=== PATIENT | female | born 1965 | race Caucasian/White ===

== ENCOUNTER → 2018-03-31 | Outpatient (REF) | payer OTHER ==
[2018-04-02 14:10] LABS: HPV HYBRID CAPTURE II Negative (Negative)
== END ==
LOC: M LAB REF 13:46
DX: Z12.4 Encounter for screening for malignant neoplasm of cervix (principal); R87.610 Atypical squamous cells of undetermined significance on cytologic smear of cervix (ASC-US)
CPT/HCPCS: G0123

== ENCOUNTER → 2018-09-23 | Outpatient (CLI) | payer BC, OTHER ==
--- NOTE | 2018-09-23 10:15 | REP ---
RIGHT SHOULDER, THREE VIEWS: HISTORY: Pain. There is no acute fracture or dislocation. There is minimal narrowing of the acromioclavicular joint space. The glenohumeral joint space is normal in appearance. IMPRESSION: Degenerative change as described above. Electronically Signed by Bryce Trejo MD 09/23/2018 10:17 A
--- NOTE | 2018-09-23 10:18 | REP ---
RIGHT WRIST, FOUR VIEWS: HISTORY: Pain. There is no acute fracture or dislocation. The joint spaces are normal in appearance. IMPRESSION: There is no acute fracture or dislocation. Electronically Signed by Bryce Trejo MD 09/23/2018 10:22 A
== END ==
LOC: M WUC 09:08
PROVIDERS: ATTEND Physician Assistant
DX: M25.511 Pain in right shoulder (principal); M25.531 Pain in right wrist

== ENCOUNTER → 2019-12-22 | Outpatient (CLI) | payer BC ==
[2019-12-23 09:07] LABS: IMMUNOGLOBULIN E 8.7 IU/ML (<100)
== END ==
LOC: M LRY 16:15
PROVIDERS: ATTEND Nurse Practitioner Family
DX: J30.2 Other seasonal allergic rhinitis (principal); L20.9 Atopic dermatitis, unspecified; H10.45 Other chronic allergic conjunctivitis

== ENCOUNTER → 2021-04-28 | Outpatient (CLI) | payer BC, OTHER | LOC: M PLALAB 07:21 | PROVIDERS: ATTEND Surgery | DX: C50.911 Malignant neoplasm of unspecified site of right female breast (principal) ==

== ENCOUNTER → 2021-05-22 | Outpatient (CLI) | payer OTHER ==
[~2021-05-22] MED LIST: BUSP5TA PO; CELE1CAP9 PO; DUPI300P SC; FAMO40TA3 PO; MAGN400T3 PO; METF500T13 PO; OMEP40CA4 PO; PRIS100T PO; ROSU20TA5 PO
== END ==
LOC: M LABSMTC 09:07
PROVIDERS: ATTEND Anesthesiology
DX: Z01.818 Encounter for other preprocedural examination (principal); Z11.52 Encounter for screening for COVID-19

== ENCOUNTER 2021-05-27 06:26 | Observation (INO) | payer OTHER ==
[~2021-05-27] VITALS: Ht 160 cm; Wt 79.4 kg
[~2021-05-27 06:26] MED LIST changes: +EMLA CREAM 5GM TUBE (LIDOCAINE/PRILOCAINE) TOP PRN; +LIDOCAINE 1% MDV 20ML VIAL SQ PRN; +LR 1,000 ML IV ONE
[2021-05-27] MEDS: ceFAZolin SOD 1 GM in D5W MINI-BAG PLUS 50 ML IV SCH ×4 (07:50→18:12)
[2021-05-27] MEDS ORDERED: MIDAZOLAM INJ 2MG/2ML VIAL (J2250 PER 1MG) As Ordered ONE (08:09)
[2021-05-27] MEDS ORDERED: ROCURONIUM BROMIDE 50 MG/5 ML VIAL As Ordered ONE (08:09)
[2021-05-27] MEDS ORDERED: fentaNYL 250 MCG/5 ML INJECTION (J3010) As Ordered ONE (08:09)
[2021-05-27] MEDS ORDERED: propofoL 200 MG/20 ML VIAL As Ordered ONE ×2 (08:09→11:22)
[2021-05-27] MEDS ORDERED: ONDANSETRON 4MG/2ML VIAL As Ordered ONE (08:09)
[2021-05-27] MEDS ORDERED: dexameTHASONE 4 MG/ML 1ML VIAL (J1100 PER 1MG) As Ordered ONE (08:09)
[2021-05-27] MEDS ORDERED: LIDOCAINE 2% 100MG/5ML SDV (FOR ANES.) As Ordered ONE (08:09)
[2021-05-27] MEDS ORDERED: SEVOFLURANE INHAL SOLN 250 ML BTL As Ordered ONE (08:20)
[2021-05-27] MEDS ORDERED: LACRILUBE (AKWA TEARS) OPHTH OINT 3.5 GM As Ordered ONE (08:22)
[2021-05-27] MEDS ORDERED: BUPIVACAINE LIPOSOME/PF 1.3% 20ML VIAL (13.3MG/ML)(EXPAREL)(C9290 PER1MG) As Ordered ONE (09:11)
[2021-05-27] MEDS ORDERED: GENTAMICIN SULF 80MG/2ML VIAL As Ordered ONE (09:11)
[2021-05-27] MEDS ORDERED: HEPARIN SOD (PORCINE) 5000UNITS/ML 1ML VIAL/SYRINGE SQ ONE (09:30)
[2021-05-27] MEDS ORDERED: SUGAMMADEX SODIUM 500 MG/5 ML VIAL (BRIDION) As Ordered ONE (11:14)
[2021-05-27] MEDS ORDERED: ACETAMINOPHEN 1000MG 100ML IV BTL (OFIRMEV) (J0131 PER 10MG) As Ordered ONE (11:37)
[2021-05-27] MEDS ORDERED: PHENYLephrine 500MCG 5ML (100MCG/ML) SYRINGE As Ordered ONE (11:52)
[2021-05-27] MEDS ORDERED: ePHEDrine SULFATE 25 MG/5 ML(5MG/ML) SYRINGE As Ordered ONE ×2 (11:52→12:58)
[2021-05-27] MEDS ORDERED: HYDROmorphone HCL 2 MG/ML 1ML VIAL As Ordered ONE (11:53)
--- NOTE | 2021-05-27 13:41 | REP ---
INDICATION: right breast -pre op. COMPARISON: None. TECHNIQUE/RADIOTRACER AND DOSE: This procedure was performed by Alyse Dasilva [facility], under the direct supervision of Dr. Blank. Images were reviewed with Dr. Blank prior to dictation. The risks and benefits of the procedure were explained to the patient and informed consent was obtained both orally and written. Directly prior to the start of the procedure, a formal timeout was done in the exam room. Using topical anesthetic and sterile technique 0.992 mCi of filtered Technetium-99m sulfur colloid was injected subdermally in 8 fractionated periareolar injections. FINDINGS: Images obtained 1 hour after injection show sree uptake in the right axilla. IMPRESSION: There is sree uptake in the right axilla. <Electronically signed by Alyse Dasilva > 05/27/21 [id number] <Electronically signed by Asad Blank > 05/27/21 [id number]
--- NOTE | 2021-05-27 15:23 | POST-OPPD ---
Postoperative Procedure Note Date Of Procedure: May 27, 2021 PREOPERATIVE DIAGNOSIS: Right breast cancer. Acquired deformity right breast. POSTOPERATIVE DIAGNOSIS: same PROCEDURE: Immediate right breast reconstruction s/p mastectomy with tissue progressive assembler and fitter. SURGEON: Dr Samson ATOMIC PHYSICS TEACHER: Dr Barkley ANESTHESIA: general ESTIMATED BLOOD LOSS: 200 cc total FINDINGS: Right breast nipple spearing mastectomy SPECIMENS: none COMPLICATIONS: none REPLACED: none DRAINS: 15 Fr round POSTOPERATIVE CONDITION: stable LEXI SAMSON DO May 27, 2021 15:23
--- NOTE | 2021-05-27 15:24 | ROOPDOC ---
[facility] Report Of Operation Report of Operation DATE OF PROCEDURE: 05/27/21 PREOPERATIVE DIAGNOSIS: Right breast cancer. Acquired deformity right breast. POSTOPERATIVE DIAGNOSIS: same PROCEDURE: Immediate right breast reconstruction s/p mastectomy with tissue perioperative educator. SURGEON: Dr Samson SURGICAL TECHNOLOGY INSTRUCTOR: Dr Barkley ANESTHESIA: general ESTIMATED BLOOD LOSS: 200 cc total FINDINGS: Right breast nipple spearing mastectomy SPECIMENS: none COMPLICATIONS: none REPLACED: none DRAINS: 15 Fr round POSTOPERATIVE CONDITION: stable DESCRIPTION OF PROCEDURE: This is a 55-year-old female who is scheduled to have right mastectomy with sentinel lymph node biopsy. Patient is a good candidate for immediate postmastectomy reconstruction today. Patient was marked in the preop holding unit. Patient was marked in the upright position. Informed consent was confirmed. Risks benefits and alternatives discussed with the patient in details. Patient was brought into the operating room, placed in supine position. General anesthesia was induced. She was given preoperative antibiotics. Sequential stockings were placed in the lower calves. She is prepped and draped in the usual sterile fashion. We started our procedure on the right side. [place] lymph node biopsy was performed initially through a separate right axillary incision by Dr. Barkley. This part of procedure will be dictated separately. Mastectomy procedure started by creating inframammary incision and nipple sparing mastectomy was done by Dr. Barkley, which is also dictated separately. At the end of the mastectomy part of procedure, I performed SPY fluorescent imaging to confirm the viability of the nipple areolar complex as well as the flap in total. We identified good vascular supply through the area. Patient was reprepped and redraped for the reconstruction part of the procedure at this point. Pectoralis muscle was examined in its good quality. Subpectoral pocket was raised using direct vision of lighted retractor. Hemostasis was obtained using electrocautery. With raised anterior serratus flap to cover lateral inferior portion of the pocket as well. The wound is irrigated with tension with gentamicin irrigation solution. 450 shaped smooth perioperative educator was placed into subpectoral pocket without difficulties. We checked again for the orientation with port placed superior portion of the pocket. The pocket closed with interrupted 3-0 Vicryl sutures without tension. With the help of a magnet finder the needle was introduced into the port and the 120 cc of normal saline was infiltrated. Good expansion was started on the perioperative educator with pectoralis muscle tolerating it well. The prepectoral area was irrigated with gentamicin solution again. Hemostasis was assured. 15 Wallisian round drain was introduced through a separate stab incision and left in the prepectoral space. Flaps were closed with interrupted 3-0 Monocryl and 4 Monocryl sutures. The port was accessed again and additional 60 cc of normal saline was introduced now totaling 180 cc of normal saline in 450 cc perioperative educator. Incisions covered with Prineo dressing, bulky dressing, and surgical bra. Patient tolerated procedure well and transferred to recovery room in stable condition. LEXI SAMSON DO May 27, 2021 15:24
[2021-05-27] MEDS ORDERED: ACETAMINOPHEN TAB 650MG DOSE (2X325MG) PO PRN (15:25)
[2021-05-27] MEDS ORDERED: traMADol 50 MG TAB PO PRN (15:25)
[2021-05-27] MEDS ORDERED: MORPHINE 2 MG/ML 1ML VIAL (J2270) IV PRN (15:25)
[2021-05-27] MEDS: LR 1,000 ML IV SCH (15:25)
[2021-05-27] MEDS ORDERED: METOCLOPRAMIDE INJ 10MG/2ML VIAL (J2765 PER 1) IV PRN (15:35)
[2021-05-27] MEDS ORDERED: LR 1,000 ML IV SCH (15:35)
[2021-05-27] MEDS ORDERED: ONDANSETRON 4MG/2ML VIAL IV PRN (15:35)
[2021-05-27] MEDS ORDERED: fentaNYL 100 MCG/2 ML INJECTION (J3010) IV PRN (15:35)
--- NOTE | 2021-05-27 15:42 | REP ---
INDICATION: S/P MASECTOMY. COMPARISON: None. TECHNIQUE: Portable FINDINGS: The technique utilized in obtaining the radiograph has magnified the cardiac silhouette and accentuated the interstitial markings. The upper lobe region of both lungs is not included on the radiograph. In addition, the lateral aspect of all of the left lung is not included on the radiograph including the left cardiac apex. The imaged portions of the lung agarwal show no gross opacities. There is a right upper lung field radiodensity possibly reflecting a surgical drainage tube or a soft tissue bloom conveyor operator. This would need to be correlated clinically. IMPRESSION: Examination is suboptimal. Repeat examination is recommended for full evaluation of the lung agarwal and to rule out the possibility of pneumonia or atelectasis. Findings as described above. <Electronically signed by Matheus Penaloza > 05/27/21 [id number]
[2021-05-27 16:15] VITALS: BP 148/82
[2021-05-27 16:45] VITALS: BP 145/82
[2021-05-27] MEDS ORDERED: GLUCOSE 4GM CHEW TABLET PO PRN (17:35)
[2021-05-27] MEDS ORDERED: DEXTROSE 50% 50 ML SYRINGE IV PRN (17:35)
[2021-05-27] MEDS ORDERED: GLUCAGON INJ 1MG VIAL SC PRN (17:35)
[2021-05-27 17:45] VITALS: BP 143/83
--- NOTE | 2021-05-27 18:08 | CR.PDOC ---
General Date of Consultation: May 27, 2021 Referring Provider: DENNIS SALINAS DO Attending Physician: JAMAICA CERON MD Consultation REASON FOR CONSULTATION/CHIEF COMPLAINT: Overseeing medical management following surgical breast procedures. HISTORY OF PRESENT ILLNESS: Ms. Fisher is a 55-year-old female in PACU s/p right breast nipple sparing mastectomy and immediate right breast reconstruction with tissue cane piler. She had been out of surgery for about 30 mins and in recovery. She was not very verbal but she was responsive to questioning. Right breast stereotactic biopsy showed pathology consistent with DCIS, grade 3, ER 90%, AK 70% on 12/30/2020. MRI on on 02/20/21 showed a right breast abnormality noted to be 4.9 x 1.9 x 3.1cm at 12:00, 3cm from the nipple. ALLERGIES: Please see below. HOME MEDICATIONS: Please see below. 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% - Pre-diabetes mellitus - Hyperlipidemia - Asthma - JOURDAN - GERD - Hiatal hernia - Depression - PTSD - Eczema PAST SURGICAL HISTORY: - Right breast nipple sparing mastectomy 05/27/2021 - Immediate right breast reconstruction s/p mastectomy with tissue cane piler - Right breast stereotactic biopsy 12/30/2020 - Tonsillectomy - WTE - - Right elbow surgery - Left ankle surgery FAMILY HISTORY: Father: Non-melanoma cancer, age 53 Siblings: sister 1 - non-melanoma, age 57; sister 2 - non-melanoma, age 49 - Denies family history of breast or ovarian cancer SOCIAL HISTORY: Tobacco use: Former smoker, quit more than 10 years ago ETOH: Occasional Illicit drug use: Denies IV drug use: Denies REVIEW OF SYSTEMS: Due to patient's groggy state status post recent surgery, full review of systems was deferred. Patient reported that her pain was under good control and she denied any significant dyspnea PHYSICAL EXAMINATION: VITAL SIGNS: Please see below. GENERAL APPEARANCE: Diaphoretic female patient who appears stated age. She does not appear to be in acute distress. She was seen in recovery in PACU s/p surgical breast procedure. HEENT: NC, AT. Mucus membranes moist. No pharyngeal erythema or exudate appreciated Chest: There is extensive bandaging over the anterior chest with supportive bra. There is no significant erythema of the chest or foul-smelling odors, discharge. No significant chest wall tenderness. RESPIRATORY: Clear to auscultation bilaterally. No wheezing, rales, or rhonchi. No apparent use of accessory muscles. Breathing is unlabored and oxygen delivery via NC. CARDIOVASCULAR: RRR. Normal S1, S2. No murmurs, gallops, or rubs heard. ABDOMEN: Hypoactive bowel sounds throughout. Soft, obese nontender nondistended. EXTREMITIES: No pitting edema. NEUROLOGICAL: She responds to questions and commands but is somewhat somnolent coming out of anesthesia. No gross focal neurologic deficits were appreciated. Nondysarthric speech. LABORATORY DATA: Please see below. IMAGIN05/27/2021 Portable CXR Findings: "The imaged portions of the lung agarwal show no gross opacities. There is a right upper lung field radiodensity possibly reflecting a surgical drainage tube or a soft tissue cane piler. This would need to be correlated clinically." ASSESSMENT/PLAN: Ms. iFsher is a 55-year-old female with a h/o right breast DCIS, pre-diabetes, hyperlipidemia, asthma, JOURDAN, GERD, hiatal hernia, depression, PTSD, and eczema presenting s/p right breast nipple sparing mastectomy and immediate right breast reconstruction with tissue cane piler consulted for medical management post surgery due to co-morbidities. # S/p right breast nipple sparing mastectomy and immediate right breast reconstruction with tissue cane piler - Will continue diet recommendations, fluids, antibiotic therapy, and pain medications per breast oncology service - Will discontinue fluids when tolerating PO - Morning lab work in the form of CBC, BMP, magnesium all ordered for tomorrow morning. # Pre-diabetes - Hold home metformin - FSBG check AC and HS, insulin sliding scale and hypoglycemia protocol ordered. # Hyperlipidemia - Continue home rosuvastatin # Asthma - Continue home inhalers - Oxygen therapy; titrating O2 >92% - Continuous pulse oximetry - Incentive spirometry - Will continue to monitor and stop fluids if patient becomes hypoxic; patient is not O2 dependent at home and was on 3 L at time of our exam. To this point she is already received 2 L of fluids. # JOURDAN - Patient states JOURDAN was diagnosed with sleep study outpatient but does not use a C-PAP - JOURDAN protocol ordered. - Continuous pulse ox ordered # GERD - Continue home famotidine, omeprazole # Depression, PTSD - Continue home Pristiq, Buspirone # Eczema - Patient takes home Dupixent pen 300mg SC Q2Wks # DVT prophylaxis: - Patient was on sequentials and will be starting heparin at 10 PM tonight per the primary service who is overseeing anticoagulation. Disposition: - Pending continued stability following surgery and at discretion of primary team. - Anticipated discharge tomorrow Vital Signs/I&O Vital Signs Date Time Temp Pulse Resp B/P (MAP) Pulse Ox O2 Delivery O2 Flow Rate FiO2 05/27/21 16:45 96.3 90 18 145/82 (103) 95 Nasal Cannula 2.0 Laboratory Data Labs 24H Laboratory Tests 2 05/27/21 07:16: Bedside Glucose (Misc Panel) 117H Allergies Coded Allergies: latex (Verified Allergy, Mild, RASH/ITCHY, 05/14/21) prochlorperazine (Verified Adverse Reaction, Unknown, LOCK JAW, 05/14/21) promethazine (Verified Adverse Reaction, Unknown, LOCK JAW, 05/14/21) Home Medications Scheduled Buspirone HCl (Buspirone HCl) 5 Mg Tablet, 5 MG PO BID, (Reported) Celecoxib (Celecoxib) 200 Mg Capsule, 200 MG PO BID, (Reported) Desvenlafaxine Succinate (Pristiq) 100 Mg Tab.er.24h, 100 MG PO DAILY, (Reported) Dupilumab (Dupixent Pen) 300 Mg/2 Ml Pen.injctr, 300 MG SC Q2WK, (Reported) Famotidine (Famotidine) 40 Mg Tablet, 40 MG PO QHS, (Reported) Magnesium Oxide (Magnesium Oxide) 400 Mg Tablet, 400 MG PO DAILY, (Reported) Metformin HCl (Metformin HCl) 500 Mg Tablet, 500 MG PO BID, (Reported) Omeprazole (Omeprazole) 40 Mg Capsule.dr, 40 MG PO DAILY, (Reported) Rosuvastatin Calcium (Rosuvastatin Calcium) 20 Mg Tablet, 20 MG PO DAILY, (Reported) Scheduled PRN Tramadol HCl (Tramadol HCl) 50 Mg Tablet, 50 MG PO Q6-8HP PRN for MODERATE PAIN (PS 5-7) for 5 Days, #20 GME ATTESTATION GME ATTESTATION My faculty preceptor for this patient encounter was physically present during the encounter and was fully available. All aspects of the patient interview, examination, medical decision making process, and medical care plan development were reviewed and approved by the faculty preceptor. The faculty preceptor is aware and concurs with the plan as stated in the body of this note and will attest to such by his/her cosignature. ATTENDING NOTE I, [place] Ceron, have independently examined this patient and performed my own physical exam, as well as reviewed the documentation and edited where necessary. I have discussed in detail with the resident / student the findings and plan of treatment as documented by the resident / student and edited their note. I agree with their findings and treatment plan and have edited their documentation. I will continue to follow the patient during this hospital stay. MANUELA KLEIN OMS-3 May 27, 2021 18:08 MARVIN WORLEY D.O. May 27, 2021 21:07 JAMAICA CERON MD May 28, 2021 10:14
[2021-05-27] MEDS: ONDANSETRON 4MG/2ML VIAL IV PRN ×2 (18:27→23:31)
[2021-05-27 18:45] VITALS: BP 143/84
[2021-05-27] MEDS ORDERED: ceFAZolin SOD 2 GM in IV 1 EA IV SCH (19:00)
[2021-05-27] MEDS: HEPARIN SOD (PORCINE) 5000UNITS/ML 1ML VIAL/SYRINGE SQ SCH (20:25)
[2021-05-27] MEDS: busPIRone 5 MG TAB PO SCH (20:25)
[2021-05-27 20:30] VITALS: BP 143/84
[2021-05-27] MEDS ORDERED: FAMOTIDINE 20 MG TAB PO SCH (21:00)
[2021-05-27] MEDS ORDERED: HumaLOG INSULIN (NovoLOG) PER UNIT SC SCH (21:00)
[2021-05-28] MEDS ORDERED: ceFAZolin 1GM VIAL (J0690 PER 500MG) As Ordered ONE ×2 (02:44→02:47)
[2021-05-28] MEDS ORDERED: ACETAMINOPHEN 325 MG TAB As Ordered ONE (02:46)
[2021-05-28] MEDS: ceFAZolin SOD 1 GM in D5W MINI-BAG PLUS 50 ML IV SCH ×2 (02:59→03:12)
[2021-05-28 04:17] VITALS: BP 140/81
[2021-05-28] MEDS: LR 1,000 ML IV SCH (04:46)
[2021-05-28] MEDS: HEPARIN SOD (PORCINE) 5000UNITS/ML 1ML VIAL/SYRINGE SQ SCH (05:43)
[2021-05-28 06:11] LABS: BASO % 0.2 % (0.0-1.0); HEMATOCRIT 35.9 % (36.0-47.0); HEMOGLOBIN 11.7 g/dl (12.0-15.5); LYMPH # 1.1 10^3/uL (1.5-5.0); LYMPH % 9.5 % (24.0-44.0); MEAN CORPUSCULAR HEMOGLOBIN 29.7 pg (27.0-33.0); MEAN CORPUSCULAR HGB CONC 32.6 g/dl (32.0-36.5); MEAN CORPUSCULAR VOLUME 91.1 fl (80.0-96.0); MONO # 0.7 10^3/uL (0.0-0.8); NEUTROPHILS # 9.7 10^3/uL (1.5-8.5); NEUTROPHILS % 83.7 % (36.0-66.0); PLATELET COUNT, AUTOMATED 193 10^3/uL (150-450); RED BLOOD COUNT 3.94 10^6/uL (4.00-5.40); WHITE BLOOD COUNT 11.5 10^3/uL (4.0-10.0)
[2021-05-28 06:34] LABS: BLOOD UREA NITROGEN 10 MG/DL (7-18); CALCIUM LEVEL 8.5 MG/DL (8.5-10.1); CARBON DIOXIDE LEVEL 27 MEQ/L (21-32); CHLORIDE LEVEL 106 MEQ/L (98-107); CREATININE FOR GFR 0.86 MG/DL (0.55-1.30); GLOMERULAR FILTRATION RATE > 60.0 (>51); GLUCOSE, FASTING 213 MG/DL (70-100); MAGNESIUM LEVEL 2.3 MG/DL (1.8-2.4); POTASSIUM SERUM 3.9 MEQ/L (3.5-5.1); SODIUM LEVEL 142 MEQ/L (136-145)
[2021-05-28] MEDS ORDERED: HumaLOG INSULIN (NovoLOG) PER UNIT SC SCH (07:30)
[2021-05-28] MEDS: busPIRone 5 MG TAB PO SCH (08:25)
--- NOTE | 2021-05-28 08:57 | IPNPDOC ---
Subjective General Date Seen: May 28, 2021 Subject Chief Complaint/History The patient is a 55-year-old female admitted with a reason for visit of Right Breast Cancer With Acquired Deformity. Patient status post right breast mastectomy with sentinel lymph node biopsy with immediate rivet driver reconstruction postop day 1. She is doing well. Tolerating regular diet, ambulating, pain controlled. Current Medications Current Medications Current Medications Medications (Trade) Dose Ordered Sig/Nicol Route PRN Reason Start Time Stop Time Status Last Admin Dose Admin Acetaminophen (Tylenol Tab) 650 mg Q6H PRN PO MILD PAIN (PS 1-4) 05/27/21 15:25 05/28/21 08:24 Buspirone HCl (Buspar) 5 mg BID PO 05/27/21 21:00 05/28/21 08:25 Cefazolin Sodium 1 gm/Dextrose 50 ml @ 200 mls/hr Q15M IV 05/27/21 07:35 05/27/21 08:04 DC 05/27/21 10:40 Cefazolin Sodium 1 gm/Dextrose 50 ml @ 200 mls/hr Q8H IV 05/27/21 19:00 05/28/21 03:14 DC 05/27/21 18:11 Cefazolin Sodium 1 gm/Dextrose 50 ml @ 200 mls/hr Q8H IV 05/27/21 19:15 05/28/21 03:29 DC 05/28/21 03:12 Cefazolin Sodium/ Dextrose 2 gm/IV Miscellaneous Supplies 50 ml @ 75 mls/hr Q8H IV 05/27/21 19:00 05/28/21 10:30 UNV Desvenlafaxine Succinate (Pristiq) 100 mg DAILY PO 05/28/21 09:00 05/28/21 08:25 Dextrose (Dextrose 50%) 25 ml ASDIRECTED PRN IV SEE LABEL COMMENTS 05/27/21 17:35 Famotidine (Pepcid) 40 mg QHS PO 05/27/21 21:00 05/27/21 20:24 Fentanyl Citrate (Sublimaze) 25 mcg Q5MP PRN IV PAIN LEVEL 8-10 05/27/21 15:35 05/27/21 16:18 DC Glucagon (Glucagon) 1 mg ASDIRECTED PRN SC SEE LABEL COMMENTS 05/27/21 17:35 Glucose (Glucose) 16 GM ASDIRECTED PRN PO SEE LABEL COMMENTS 05/27/21 17:35 Heparin Sodium (Porcine) (Heparin) 5,000 units Q8H SQ 05/27/21 22:00 05/28/21 05:43 Insulin Human Lispro (HumaLOG INSULIN) SEE PROTOCOL TABLE AC SC 05/28/21 07:30 05/28/21 08:24 Insulin Human Lispro (HumaLOG INSULIN) SEE PROTOCOL TABLE QHS SC 05/27/21 21:00 Lactated Ringer's 1,000 ml @ 75 mls/hr [id number] IV 05/27/21 15:25 05/28/21 04:46 Lactated Ringer's 1,000 ml @ 100 mls/hr Q10H IV 05/27/21 15:35 05/27/21 16:18 DC Lidocaine HCl (LIDOCAINE 1% MDV 20ml) 0.1 ml ONCE PRN SQ DISCOMFORT BEFORE IV START 05/27/21 06:00 05/27/21 16:17 DC Lidocaine/ Prilocaine (Emla) ONCE PRN TOP DISCOMFORT BEFORE IV START 05/27/21 06:00 05/27/21 16:16 DC Magnesium Oxide (Mag-Ox) 400 mg DAILY PO 05/28/21 09:00 05/28/21 08:24 Metoclopramide HCl (REGLAN INJection) 10 mg Q6HP PRN IV NAUSEA OR VOMITING 05/27/21 15:35 05/27/21 16:17 DC Morphine Sulfate (Morphine Sulfate Inj) 2 mg Q4H PRN IV PAIN LEVEL 8-10 05/27/21 15:25 Omeprazole (PriLOSEC) 40 mg DAILY PO 05/28/21 09:00 05/28/21 08:24 Ondansetron HCl (ZOFRAN INJection) 4 mg Q4H PRN IV NAUSEA OR VOMITING 05/27/21 15:25 05/27/21 23:31 Ondansetron HCl (ZOFRAN INJection) 4 mg Q4HP PRN IV NAUSEA OR VOMITING 05/27/21 15:35 05/27/21 16:17 DC Rosuvastatin Calcium (Crestor) 20 mg DAILY PO 05/28/21 09:00 05/28/21 08:24 Tramadol HCl (Ultram) 50 mg Q4HP PRN PO MODERATE PAIN (PS 5-7) 05/27/21 15:25 Allergies Coded Allergies: latex (Verified Allergy, Mild, RASH/ITCHY, 05/14/21) prochlorperazine (Verified Adverse Reaction, Unknown, LOCK JAW, 05/14/21) promethazine (Verified Adverse Reaction, Unknown, LOCK JAW, 05/14/21) Objective Physical Examination Examination GENERAL APPEARANCE:Patient seen, laying in bed, awake, alert, and oriented. Comfortable, in no acute distress. SKIN: Warm and moist. BREAST: Right and left soft, non-tender incisions intact. AUDREY drains: 135 cc/24 hr. Right NAC viable, warm. Flap soft, pink viable. HEENT: Normocephalic, atraumatic. [place] palpebral conjunctiva, anicteric sclerae. Lips and mucosa appear moist. NECK: Supple, no thyromegaly. No obvious jugular venous distention. LUNGS: Clear to auscultation bilaterally. No wheezing appreciated. HEART: No chest wall abnormalities. Regular rate and rhythm with no murmurs appreciated. Vital Signs Vital Signs Date Time Temp Pulse Resp B/P (MAP) Pulse Ox O2 Delivery O2 Flow Rate FiO2 05/28/21 04:17 97.8 83 18 140/81 (100) 97 Room Air 05/27/21 18:45 2.0 I&Os I&O- Last 24 Hours up to 6 AM 05/28/21 06:00 Intake Total 2485 ml Output Total 2370 ml Balance 115 ml Laboratory Data Labs 24H Laboratory Tests 2 05/27/21 17:52: Bedside Glucose (Misc Panel) 225H 05/27/21 20:29: Bedside Glucose (Misc Panel) 232H 05/28/21 05:40: Immature Granulocyte % (Auto) 0.6, Neutrophils (%) (Auto) 83.7H, Lymphocytes (%) (Auto) 9.5L, Monocytes (%) (Auto) 6.0, Eosinophils (%) (Auto) 0.0, Basophils (%) (Auto) 0.2, Neutrophils # (Auto) 9.7H, Lymphocytes # (Auto) 1.1L, Monocytes # (Auto) 0.7, Eosinophils # (Auto) 0.0, Basophils # (Auto) 0.0, Nucleated Red Blood Cells % (auto) 0.0, Anion Gap 9, Glomerular Filtration Rate > 60.0, Calcium Level 8.5, Magnesium Level 2.3 CBC/BMP Laboratory Tests 05/28/21 05:40 Impression Status post right mastectomy with sentinel lymph node biopsy and immediate postop reconstruction right breast with rivet driver postop day 1. Stable for discharge. Dressing changed today. Continue monitoring AUDREY drain. Follow-up plastic surgery after discharge Postop appointment with plastic surgery June 02 at 11:30 AM Plan / VTE VTE Prophylaxis Ordered?: Yes LEXI SAMSON DO May 28, 2021 08:57
[2021-05-28] MEDS ORDERED: DESVENLAFAXINE ER 50 MG TABLET (PRISTIQ) PO SCH (09:00)
[2021-05-28] MEDS ORDERED: ROSUVASTATIN 10 MG TAB (CRESTOR) PO SCH (09:00)
[2021-05-28] MEDS ORDERED: OMEPRAZOLE 20 MG CAP PO SCH (09:00)
[2021-05-28] MEDS ORDERED: MAGNESIUM OXIDE 400MG TAB (MAG-OX) PO SCH (09:00)
--- NOTE | 2021-05-28 10:25 | IPNPDOC ---
Text Note Date of Service The patient was seen on 05/28/21. NOTE Subjective: Patient is a 55-year-old female with a PMhx of R breast DCIS (Grade 3 / ERPR positive), Pre-DM2, DLp, Asthma, JOURDAN, Depression / PTSD, Eczema, GERD / Hiatal hernia, who presented to [facility] for an R sided nipple sparing mastectomy, immediate R breast reconstruction with tissue plant worker and sentinel LN biopsy. Patient was admitted to the service of Dr. Barkley. Hospitalist service was consulted for medical management. Patient was seen and examined at the bedside. Patient denies any nausea this morning. However, she did experience nausea yesterday. Denies any vomiting, abdominal pain, diarrhea, or urinary discomfort. She denies any significant chest pain around the incision site. Denies any shortness of breath or cough. Objective: Vitals (See below) General: Lying in bed, appears comfortable, AAOx3 HEENT: NC, AT CVS: +S1S2 Lungs: Fair air entry b/l, no evidence of wheezing, rales or rhonchi Abdomen: Soft, ND, NT Extremities: - Edema, - Calf tenderness Imaging: LN Scan NM 05/27: There is sree uptake in the right axilla. CXR 05/27: Examination is suboptimal. Repeat examination is recommended for full evaluation of the lung agarwal and to rule out the possibility of pneumonia or atelectasis. Findings as described above. Assessment and plan: Right breast nipple sparing mastectomy and immediate right breast reconstruction with tissue plant worker + [place] LN biopsy (POD#1) - History of R breast DCIS (Grade 3 / ERPR positive) - Clinically patient reports that she's feeling well without any significant pain - s/p Fluids - Tolerating oral diet - c/w Pain medications as per primary team Leukocytosis - likely 2/2 reactive process 2/2 surgery - Review of systems is negative for any source of infection - Hemodynamically stable and afebrile - Patient is saturating well on room air - No antibiotics indicated at this time Pre-DM2 - c/w ISS; Resume oral regimen on discharge DLP - c/w Rosuvastatin Asthma - No evidence of exacerbation - c/w inhaled therapy as ordered JOURDAN - Has been on JOURDAN protocol here - Advised outpatient follow up with PCP for possible CPAP device if required Depression / PTSD - c/w Buspirone / Desvenlafaxine Eczema - c/w outpatient Dupilumab on discharge GERD / Hiatal hernia - c/w Famotidine, Omeprazole DVT prophylaxis - Currently on Heparin; managed by primary team Disposition: - Anticipated discharge this afternoon VS,Kam, I+O VS, Kam, I+O Laboratory Tests 05/28/21 05:40 Vital Signs Date Time Temp Pulse Resp B/P (MAP) Pulse Ox O2 Delivery O2 Flow Rate FiO2 05/28/21 04:17 97.8 83 18 140/81 (100) 97 Room Air 05/27/21 18:45 2.0 I&O- Last 24 Hours up to 6 AM 05/28/21 06:00 Intake Total 2485 ml Output Total 2370 ml Balance 115 ml ANAYELI ONEAL MD May 28, 2021 10:25
[2021-05-28] MEDS ORDERED: TRAM50TA2 PO (10:41)
--- NOTE | 2021-05-28 10:44 | IPNPDOC ---
Subjective General Date Seen: May 28, 2021 (7 am) Subject Chief Complaint/History The patient is a 55-year-old female admitted with a reason for visit of Right Breast Cancer, s/p right nipple sparing mastectomy with right sentinel lymph node biopsy done on 05/27/2021. Patient experienced post op nausea and vomiting. She was still dizzy and confused yesterday p.o. anesthesia. She is feeling better today. She did not eat much yesterday. She will try some yogurt this morning for breakfast. Pain is well controlled. Patient did not require narcotics. She only took Tylenol. She has 1 AUDREY drain at the mastectomy sign with sanguinous drainage-low volume Current Medications Current Medications Current Medications Medications (Trade) Dose Ordered Sig/Nicol Route PRN Reason Start Time Stop Time Status Last Admin Dose Admin Acetaminophen (Tylenol Tab) 650 mg Q6H PRN PO MILD PAIN (PS 1-4) 05/27/21 15:25 05/28/21 08:24 Buspirone HCl (Buspar) 5 mg BID PO 05/27/21 21:00 05/28/21 08:25 Cefazolin Sodium 1 gm/Dextrose 50 ml @ 200 mls/hr Q15M IV 05/27/21 07:35 05/27/21 08:04 DC 05/27/21 10:40 Cefazolin Sodium 1 gm/Dextrose 50 ml @ 200 mls/hr Q8H IV 05/27/21 19:00 05/28/21 03:14 DC 05/27/21 18:11 Cefazolin Sodium 1 gm/Dextrose 50 ml @ 200 mls/hr Q8H IV 05/27/21 19:15 05/28/21 03:29 DC 05/28/21 03:12 Cefazolin Sodium/ Dextrose 2 gm/IV Miscellaneous Supplies 50 ml @ 75 mls/hr Q8H IV 05/27/21 19:00 05/28/21 10:30 UNV Desvenlafaxine Succinate (Pristiq) 100 mg DAILY PO 05/28/21 09:00 05/28/21 08:25 Dextrose (Dextrose 50%) 25 ml ASDIRECTED PRN IV SEE LABEL COMMENTS 05/27/21 17:35 Famotidine (Pepcid) 40 mg QHS PO 05/27/21 21:00 05/27/21 20:24 Fentanyl Citrate (Sublimaze) 25 mcg Q5MP PRN IV PAIN LEVEL 8-10 05/27/21 15:35 05/27/21 16:18 DC Glucagon (Glucagon) 1 mg ASDIRECTED PRN SC SEE LABEL COMMENTS 05/27/21 17:35 Glucose (Glucose) 16 GM ASDIRECTED PRN PO SEE LABEL COMMENTS 05/27/21 17:35 Heparin Sodium (Porcine) (Heparin) 5,000 units Q8H SQ 05/27/21 22:00 05/28/21 05:43 Insulin Human Lispro (HumaLOG INSULIN) SEE PROTOCOL TABLE AC SC 05/28/21 07:30 05/28/21 08:24 Insulin Human Lispro (HumaLOG INSULIN) SEE PROTOCOL TABLE QHS SC 05/27/21 21:00 Lactated Ringer's 1,000 ml @ 75 mls/hr [id number] IV 05/27/21 15:25 05/28/21 04:46 Lactated Ringer's 1,000 ml @ 100 mls/hr Q10H IV 05/27/21 15:35 05/27/21 16:18 DC Lidocaine HCl (LIDOCAINE 1% MDV 20ml) 0.1 ml ONCE PRN SQ DISCOMFORT BEFORE IV START 05/27/21 06:00 05/27/21 16:17 DC Lidocaine/ Prilocaine (Emla) ONCE PRN TOP DISCOMFORT BEFORE IV START 05/27/21 06:00 05/27/21 16:16 DC Magnesium Oxide (Mag-Ox) 400 mg DAILY PO 05/28/21 09:00 05/28/21 08:24 Metoclopramide HCl (REGLAN INJection) 10 mg Q6HP PRN IV NAUSEA OR VOMITING 05/27/21 15:35 05/27/21 16:17 DC Morphine Sulfate (Morphine Sulfate Inj) 2 mg Q4H PRN IV PAIN LEVEL 8-10 05/27/21 15:25 Omeprazole (PriLOSEC) 40 mg DAILY PO 05/28/21 09:00 05/28/21 08:24 Ondansetron HCl (ZOFRAN INJection) 4 mg Q4H PRN IV NAUSEA OR VOMITING 05/27/21 15:25 05/27/21 23:31 Ondansetron HCl (ZOFRAN INJection) 4 mg Q4HP PRN IV NAUSEA OR VOMITING 05/27/21 15:35 05/27/21 16:17 DC Rosuvastatin Calcium (Crestor) 20 mg DAILY PO 05/28/21 09:00 05/28/21 08:24 Tramadol HCl (Ultram) 50 mg Q4HP PRN PO MODERATE PAIN (PS 5-7) 05/27/21 15:25 Allergies Coded Allergies: latex (Verified Allergy, Mild, RASH/ITCHY, 05/14/21) prochlorperazine (Verified Adverse Reaction, Unknown, LOCK JAW, 05/14/21) promethazine (Verified Adverse Reaction, Unknown, LOCK JAW, 05/14/21) Objective Physical Examination Examination Patient is alert and oriented x3 Breathing comfortably on room air Right mastectomy site with viable skin flaps and viable nipple. There is some bruising seen. There is tissue press smith helper in the mastectomy area. There is a AUDREY drain coming from the inferior aspect of the incision. There is another incision in the right axillary area covered with glue. This is well approximated. There is no postop hematoma in the axilla or at the mastectomy site. Abdomen nondistended No signs of lymphedema. Vital Signs Vital Signs Date Time Temp Pulse Resp B/P (MAP) Pulse Ox O2 Delivery O2 Flow Rate FiO2 05/28/21 04:17 97.8 83 18 140/81 (100) 97 Room Air 05/27/21 18:45 2.0 I&Os I&O- Last 24 Hours up to 6 AM 05/28/21 06:00 Intake Total 2485 ml Output Total 2370 ml Balance 115 ml Laboratory Data Labs 24H Laboratory Tests 2 05/27/21 17:52: Bedside Glucose (Misc Panel) 225H 05/27/21 20:29: Bedside Glucose (Misc Panel) 232H 05/28/21 05:40: Immature Granulocyte % (Auto) 0.6, Neutrophils (%) (Auto) 83.7H, Lymphocytes (%) (Auto) 9.5L, Monocytes (%) (Auto) 6.0, Eosinophils (%) (Auto) 0.0, Basophils (%) (Auto) 0.2, Neutrophils # (Auto) 9.7H, Lymphocytes # (Auto) 1.1L, Monocytes # (Auto) 0.7, Eosinophils # (Auto) 0.0, Basophils # (Auto) 0.0, Nucleated Red Blood Cells % (auto) 0.0, Anion Gap 9, Glomerular Filtration Rate > 60.0, Calcium Level 8.5, Magnesium Level 2.3 CBC/BMP Laboratory Tests 05/28/21 05:40 Impression 55-year-old woman with 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 Patient is recovering well. Mastectomy flaps are viable -Please provide patient with replacement of surgical bra extra-large prior to discharge -Patient will be seen by plastic surgery and medical team later today -She is stable for discharge from breast surgery point of view, awaiting input from plastic surgery and medical team Plan / VTE VTE Prophylaxis Ordered?: Yes DENNIS SALINAS DO May 28, 2021 10:44
--- NOTE | 2021-06-02 22:55 | ROOPDOC ---
[facility] Report Of Operation Report of Operation DATE OF PROCEDURE: 05/27/21 PREPROCEDURE DIAGNOSES: right breast cancer POSTPROCEDURE DIAGNOSES: Right breast cancer PROCEDURE PERFORMED: Right breast nipple sparing mastectomy with reconstruction, Right sentinel lymph node biopsy, Right pectoralis muscle block, intraop radiography of the specimen with interpretation SURGEON: Dr. Dennis Barkley JUKEBOX ROUTEMAN: Dr Jolanta Wolff ANESTHESIA: general ESTIMATED BLOOD LOSS: Approximately 200 mL. COMPLICATIONS: none REMARKS: clip noted in mastectomy specimen on intraop radiography. PROCEDURE NOTE: INDICATIONS: Ms. Fisher is a 55 year old lady who was found to have suspicious calcifications on mammogram of right breast. The extent of calcifications measures over 4 cm. The calcifications were biopsied with stereotactic biopsy at OSH. Pathology showed DCIS ER/OK +. Patient had MRI of the breast at OSH which showed nonmass enhancement in upper outer quadrant over 4 cm concerning for extent of DCIS We discussed surgical options and patient opted for mastectomy. She is a candidate for nipple sparing mastectomy. I explained to her that if the cancer is found in the tissue removed directly from underneath the nipple then u nfortunately the nipple will need to be removed in the future. I also explained to the patient that we also need to evaluate her lymph nodes with right sentinel lymph node biopsy. Risks and possible complications of surgical procedure including bleeding, infection and injury to surrounding structures including nipple loss and lymphedema were explained to the patient and she wished to proceed. Consent was signed. Subcutaneous heparin 5000 units was given to patient in the preop area. Lymphoscintigraphy was reviewed preoperatively and the tracer was found in the right axilla. Dr Wolff marked patient preoperatively. DETAILS: Patient was taken to the operating room and placed supine on the operating room table. Foam was placed under her heels. A sign in was called stating patients name, date of and the procedure to be done. Preoperative antibiotics were infused. Smooth induction of general anesthesia was done. Patients hands were extended on arm rests. Care was taken not to over extend patients arms. Pillow was placed under the knees and a foam was placed under the hills. Sequential compression devices were placed and assured to function correctly. Patients right breast and axilla were prepped and draped in the usual fashion. Neoprobe was used to fernando the site of maximal signal in the axilla. The right breast possible tumor extension was marked on the skin using ultrasound karen dance. Biopsy clip location was found with the intraop US and marked on the skin. Appropriate time out was done and patients name, date of , and the procedure to be done were confirmed. Procedure was started with sentinel lymph node biopsy. Neoprobe was used to locate area of maximum intensity of the signal. Local anesthetic using 1% lidocaine and 0.25 % Marcaine 50/50 mix was injected. An incision was made with scalpel number 15 at the inferior aspect of axillary hair line in the right axilla where the maximum signal was identified. The sharp and blunt dissection was continued through the subcutaneous adipose tissue. Clavipectoral fascia was opened. Neoprobe was used to guide the dissection. First sentinel lymph node was identified and excised. The ex-vivo 10 second count was [id number]. Second sentinel lymph node was identified and excised as well. The ex-vivo 10 second count was [id number]. Third sentinel lymph node was identified and excised as well. The ex-vivo 10 second count was 1787. The specimens were labeled with patients name and sent to pathology. No additional lymph nodes with high radioactive signal were identified. The 10 second count of the background was 92. Adequate hemostasis was assured. Additional local anesthetic was injected into s urrounding tissues. Wound was irrigated. Clavipectoral fascia was closed with 3- 0 Vicryl interrupted suture. Dermal layer was closed at the end of the case with 3-0 Monocryl and skin was closed with 4-0 Monocryl. Surgical glue was applied to the incision at the end of the procedure. Next, we proceeded with Right beast mastectomy. Right inferior incision was made at the inframammary fold with scalpel number 15. Subcutaneous flaps were developed using electrocautery. Dissection was carried toward the inframammary fold inferiorly, toward sternum medially, toward inferior aspect of clavicle superiorly and toward the axilla laterally. The breast tissue was dissected from the muscle posteriorly and pectoralis fascia was taken with the specimen. At the nipple level the mastectomy specimen site was marked with the double short stitch. In addition, a small amount of the tissue from the base of the nipple was removed and sent as a separate specimen to pathology as retroareolar tissue. The dissection of the breast specimen [facility] sure that axilla is not entered. Next, mastectomy cavity was irrigated and hemostasis was achieved. Doctor Bradford assistance was critical in achieving adequate hemostasis and progressing the case safely. Right breast mastectomy specimen was marked for orientation with short single stitch marking superior edge of mastectomy and long single stitch marking lateral edge of mastectomy. The specimen was weighted and weight of 415g was reported. Specimen was then placed on the grid and placed in [employer] [facility]. The image revealed the nonhydromark clip in the specimen and some calcifications. The specimen was then placed in formaldehyde, and passed to pathology. Some additional superior flap trimming was done after mastectomy specimen was removed and the tissue was sent as additional right mastectomy tissue. This was sent un-oriented. A 15 [place] Brent drain was placed into the mastectomy cavity through a separate stab incision and secured at the skin with stitches. Next, pectoral muscle blocks on the right side was done with Exparel. The right nipple sparing mastectomy and right sentinel lymph node biopsy portion of the procedure was completed. Instrument and sponge count was correct. The chest was re-prepped and re-draped for Dr Bradford part of procedure involving tissue patient observer placement. Indocyanine green and laser assisted fluorescence angiography (SPY) was used and showed adequate perfusion of the right mastectomy flap and the nipple. Please refer to Dr. Bradford note for details of this part of the procedure. I assisted with the reconstruction part of the procedure as well and stayed scrubbed throughout entire procedure. Right breast incision was closed in the usual fashion. Final instrument and sponge count was correct. Prineo dressing was placed. Patient emerged from general anesthesia without any problems. Patient tolerated procedure well and was taken to recovery unit in stable condition. DENNIS BARKLEY DO May 27, 2021 15:22
== END 2021-05-28 12:00 | disposition home or self-care (01) ==
LOC: M SDC 06:26 → M ED INP 06:27 → M MS5PR 16:10
PROVIDERS: ADMIT Surgery; ATTEND Plastic Surgery Surgery of the Hand
DX: D05.11 Intraductal carcinoma in situ of right breast (principal); Z90.11 Acquired absence of right breast and nipple; Z17.0 Estrogen receptor positive status [ER+]; D72.829 Elevated white blood cell count, unspecified; R11.0 Nausea; L30.9 Dermatitis, unspecified; F32.9 Major depressive disorder, single episode, unspecified; F43.10 Post-traumatic stress disorder, unspecified; E66.9 Obesity, unspecified; K44.9 Diaphragmatic hernia without obstruction or gangrene; R73.03 Prediabetes; J45.909 Unspecified asthma, uncomplicated; G47.33 Obstructive sleep apnea (adult) (pediatric); K21.9 Gastro-esophageal reflux disease without esophagitis; E78.5 Hyperlipidemia, unspecified; Z79.899 Other long term (current) drug therapy; Z79.84 Long term (current) use of oral hypoglycemic drugs; Z88.8 Allergy status to other drugs, medicaments and biological substances; Z91.040 Latex allergy status; F17.210 Nicotine dependence, cigarettes, uncomplicated
CPT/HCPCS: 19303; 19357; 36415; 38525; 64420; 71045; 78195; 80048; 81025; 83735; 85025; 86850; 86900; 86901; 88305; 88307; 88342; 96365; 96366; 96375; 96376; A9541; C1789; C9290; G0378; J0131; J0690; J1100; J1170; J1580; J1644; J2250; J2370; J2405; J3010

== ENCOUNTER → 2021-07-08 | Outpatient (CLI) | payer OTHER ==
[~2021-07-08] MED LIST changes: -EMLA CREAM 5GM TUBE (LIDOCAINE/PRILOCAINE) TOP PRN; -LIDOCAINE 1% MDV 20ML VIAL SQ PRN; -LR 1,000 ML IV ONE; -MAGN400T3 PO; +MAGN400T33 PO; +METH36TA5 PO; +ONDA8TAB10 PO; +PROC10TA4 PO; +TRAM50TA2 PO
--- NOTE | 2021-07-08 15:55 | RADONC.CN ---
Radiation Oncology Hx/Consult Radiation Oncology Consult Date of Service: Jul 08, 2021 Pt Identifier Smita Fisher is a 55 year old female with screening mammogram detected right breast cancer pT1aN0(sn)M0 ER/FL/HER2+ grade 2, as well as EIC DCIS, s/p right nipple sparing mastectomy and immediate reconstruction on 05/27/21 margins widely negative. She is seen for consideration of adjuvant RT. Diagnosis/Treatment History Oncologic History 11/15/20 Screening mammogram with right breast calcifications 11/28/20 Diagnostic mammogram with right upper outer quadrant calcifications 2.6 cm x 2.9 cm 01/09/21 Biopsy showing DCIS grade 3 ER/FL+ 02/20/21 MRI without regional disease 05/27/21 Right nipple sparing mastectomy and immediate reconstruction revealing pT1aN0(sn)M0 ER/FL/HER2+ grade 2 IDC and extensive DCIS margins negative 06/13/[address] Avalos recommending adjuvant chemotherapy Breast history: 1st @ 22 Menses @ 13 Post-menopausal @ 51 No OCP No HRT No IVF Interval History Ana feels well no post-operative pain, minor dependent swelling remains in the right reconstructed breast. No swelling in the RUE. Appetite good, weight s table. Past Medical History: Asthma GERD PTSD JOURDAN Past Surgical History: C section Tonsillectomy Family History: Father basal cell carcinoma Social History: Never smoker Drinks occasionally Allergies / Meds Allergies: Coded Allergies: latex (Verified Allergy, Mild, RASH/ITCHY, 05/14/21) prochlorperazine (Verified Adverse Reaction, Unknown, LOCK JAW, 05/14/21) promethazine (Verified Adverse Reaction, Unknown, LOCK JAW, 05/14/21) Home Meds Active Scripts Ondansetron HCl (Ondansetron HCl) 8 Mg Tablet, 8 MG PO Q8H PRN for NAUSEA OR VOMITING, #30 TAB 3 Refills Prov:ELBERT BERUMEN MD FACP 06/30/21 Tramadol HCl (Tramadol HCl) 50 Mg Tablet, 50 MG PO Q6-8HP PRN for MODERATE PAIN (PS 5-7) MDD 4 for 5 Days, #20 TAB Prov:CHAPINLEXI. DO 05/28/21 Reported Medications Methylphenidate HCl (Methylphenidate ER) 36 Mg Tab.er.24, 2 TAB PO QAM MDD 1 Tablet(s) for 5 Days, #5 TAB 07/08/21 Dupilumab (Dupixent Pen) 300 Mg/2 Ml Pen.injctr, 300 MG SC Q2WK 05/14/21 Rosuvastatin Calcium (Rosuvastatin Calcium) 20 Mg Tablet, 20 MG PO DAILY, TAB 05/14/21 Omeprazole (Omeprazole) 40 Mg Capsule.dr, 40 MG PO DAILY, CAP 05/14/21 Metformin HCl (Metformin HCl) 500 Mg Tablet, 500 MG PO BID, TAB 05/14/21 Celecoxib (Celecoxib) 200 Mg Capsule, 200 MG PO BID, CAP 05/14/21 Famotidine (Famotidine) 40 Mg Tablet, 40 MG PO QHS, TAB 05/14/21 Magnesium Oxide (Magnesium Oxide) 400 Mg Tablet, 400 MG PO DAILY, TAB 05/14/21 Buspirone HCl (Buspirone HCl) 5 Mg Tablet, 5 MG PO BID, TAB 05/14/21 Desvenlafaxine Succinate (Pristiq) 100 Mg Tab.er.24h, 100 MG PO DAILY, TAB 05/14/21 Discontinued Scripts Prochlorperazine Maleate (Prochlorperazine Maleate) 10 Mg Tablet, 10 MG PO Q8H PRN for NAUSEA OR VOMITING, #30 TAB 3 Refills Prov:ELBERT BERUMEN MD FACP 06/30/21 Review of Systems Constitutional: Denies: Fatigue, Weight Loss Eyes: Denies: Pain HEENT: Denies: Head Aches Skin: Denies: Rash Pulmonary: Denies: Dyspnea, Cough Cardiovascular: Denies: Chest Pain Breast: Denies: New Breast Lumps / Masses, Nipple Retraction, Nipple Discharge, Breast Skin Changes, Breast Pain or Tenderness Gastrointestinal: Denies: Abdominal Pain Musculoskeletal: Denies: Neck pain, Arm pain, Back pain Neurological: Denies: Weakness, Numbness Psych: Reports: Mood Normal Vital Signs Wt 180 lbs T 96.7 P 112 RR 17 BP 156/92 O2 96% Pain 0 Fatigue 0 General Exam: Alert, Cooperative, No Acute Distress Eye Exam: PERRLA, EOMI ENT EXAM: Mucous membr. moist/pink, Pharynx Normal Neck Exam: Negative: Thyromegaly, Lymphadenopathy Chest Exam: Normal air movement; Negative: Rales, Rhonchi, Wheezing Heart Exam: Rate Normal, Regular Rhythm Breast Exam: Negative: Symmetric Bilaterally (Well healed incisions on right, right tissue insurance account specialist in place, breast with higher lay than left), Lumps or Masses, Nipple Retraction, Skin Changes Abdomen Exam: Soft; Negative: Tenderness, Mass Extremity Exam: Negative: Edema, Tenderness Skin Exam: Nl turgor and temperature; Negative: Rash Neuro Exam: Normal Gait, Normal Speech, Cranial Nerves 3-12 NL Psych Exam: Mental status NL, Mood NL, Memory Intact Diagnostic and Laboratory Diagnostic Review Radiologic images, relevant labs and pathology reports were personally reviewed and discussed with Ms. Fisher. Assessment and Plan Impression Ms. Fisher is a 55 year old female with a history of screening mammogram detected right breast cancer pT1aN0(sn)M0 ER/FL/HER2+ grade 2, as well as EIC DCIS, s/p right nipple sparing mastectomy and immediate reconstruction on 05/27/21 margins widely negative. She is seen for consideration of adjuvant RT. Stage Right breast IDC pT1aN0(sn)M0 ER/FL/HER2+ grade 2 stage IA Performance Status ECOG 0 Plan We had an extensive discussion with Ms. Fisher regarding the diagnosis at hand and available therapeutic options. She has healed well from her surgery. She has follow up with Dr. Avalos and [facility] upcoming. Her pathology from the mastectomy revealed negative margins widely including at the skin, therefore I explained that she has no indication for PMRT. I did take time to explain the rationale for systemic therapy in her case given the triple positive phenotype of the cancer. This phenotype has no basis on RT decision making post-mastectomy. She was happy to receive this news. After discussing the risks, benefits and alternatives to radiation therapy, Ms. Fisher was amenable to foregoing RT per my recommendation. All questions were answered to the patient's satisfaction. We instructed the patient that if there were any questions,concerns or changes in clinical status in the interim to contact us. Recommendations No indication for PMRT Follow up PRN Billing Statement Total time of [34] minutes was spent preparing for the visit [2], obtaining HPI [5], examining the patient [4], reviewing diagnostic tests [4], discussing management options [13], coordinating care [0], and writing this note [6]. PURNIMA QUAN MD Jul 08, 2021 15:55
== END ==
LOC: M ONCR 13:53
PROVIDERS: ATTEND General Practice
DX: D05.11 Intraductal carcinoma in situ of right breast (principal); Z91.040 Latex allergy status; Z79.899 Other long term (current) drug therapy

== ENCOUNTER → 2021-08-01 | Outpatient (CLI) | payer OTHER ==
[~2021-08-01] MED LIST changes: +ALBU83IN INH; +ANAS1TAB2 PO
--- NOTE | 2021-08-02 21:37 | ECHO ---
ECHOCARDIOGRAM DATE OF PROCEDURE: 08/01/2021 Age: Gender: Female Height: 63 inches Weight: 178 pounds REFERRING PHYSICIAN: Delfino Avalos M.D. INDICATION: Chemotherapy drugs that may affect the heart. MEASUREMENTS: 2D Measurements: Proximal ascending aorta 3.0 cm Left ventricle diastole 4.4 cm Intraventricular septum 1.15 cm Posterior wall 1.08 cm Left atrium 3.3 cm Aortic root 2.9 cm Left atrial volume index 23 Aortic root 3.0 cm Inferior vena cava 0.9 cm Doppler Measurements: No aortic regurgitation Aortic valve velocity 126 cm/sec LVOT velocity 98.6 cm/sec Trace mitral regurgitation Mitral E velocity 76.3 cm/sec Mitral A velocity 93.4 cm/sec Mitral deceleration time 154 msec Mild tricuspid regurgitation Estimated right ventricle systolic pressure 27-32 mmHg Trace pulmonic regurgitation Pulmonary artery acceleration time 95 msec MITRAL ANNULAR TISSUE DOPPLER: E prime septal 6.7 cm/sec E prime lateral 8.5 cm/sec DESCRIPTION: Rhythm was sinus. Image quality was adequate. This was a 2D, M-mode, color flow Doppler and pulse wave Doppler examination and included mitral annular tissue Doppler. CONCLUSIONS: 1. Normal left ventricle internal dimensions and wall thickness. Normal regional left ventricular (LV) wall motion and wall thickening. Normal LV systolic function. Left ventricular ejection fraction (LVEF) 65% (3D). Normal peak systolic log internal string pattern. Grade 1 LV diastolic dysfunction. Normal left atrial size. 2. Mild aortic valve sclerosis of a 3-cusp aortic valve. No aortic regurgitation. 3. Very small pericardial effusion. 4. Otherwise normal appearing echocardiogram Doppler findings.
== END ==
LOC: M CARPUL 08:13
PROVIDERS: ATTEND Specialist
DX: C50.911 Malignant neoplasm of unspecified site of right female breast (principal); I35.8 Other nonrheumatic aortic valve disorders; I31.3 Pericardial effusion (noninflammatory)

== ENCOUNTER → 2021-08-12 | Outpatient (CLI) | payer OTHER ==
--- NOTE | 2021-08-12 11:22 | DEXAMM ---
INDICATION: STARTING ARIMIDEX. COMPARISON: None. TECHNIQUE: Bone density was measured using dual-energy x-ray absorptiometry (DEXA). FINDINGS: AP SPINE L1-L4 BMD 1.234 g/cm2 Young Adult T-Score 0.3 Age Matched Z-Score 1.1. LT FEMUR, TOTAL BMD 1.008 g/cm2 Young Adult T-Score 0.0 Age Matched Z-Score 0.6. LT NECK BMD 0.959 g/cm2 Young Adult T-Score -0.6 Age Matched Z-Score 0.4. RT FEMUR, TOTAL BMD 0.986 g/cm2 Young Adult T-Score -0.2 Age Matched Z-Score 0.5. RT NECK BMD 0.939 g/cm2 Young Adult T-Score -0.7 Age Matched Z-Score 0.3. IMPRESSION: There is normal bone density of the spine. There is normal bone density of the left hip. There is normal bone density of the right hip. FOLLOW-UP: Recommendation for the next bone density exam: 5 years. <Electronically signed by Yared Holden > 08/12/21 [id number]
== END ==
LOC: M WHC 09:44
PROVIDERS: ATTEND Specialist
DX: C50.911 Malignant neoplasm of unspecified site of right female breast (principal)

== ENCOUNTER → 2021-08-18 | Outpatient (CLI) | payer OTHER ==
[~2021-08-18] MED LIST changes: +GASTROGRAFIN SOLUTION 30ML (Q9963) As Ordered ONE; +ISOVUE-370 76% 100ML VIAL As Ordered ONE
--- NOTE | 2021-08-21 15:37 | REP ---
INDICATION: BREAST CA. COMPARISON: There are no prior CTs for comparison. The only prior abdominal imaging study for review is in ultrasound examination which was obtained 11/04/2018 from an outside institution. TECHNIQUE: Standard helical technique after the intravenous administration of 100 cc Isovue 370 and oral bowel preparatory contrast administration. FINDINGS: The lung bases are clear. The liver, gallbladder, spleen, pancreas, adrenal glands, and kidneys are within normal limits. The abdominal aorta and para-aortic regions are within normal limits. The bowel loops and the mesenteries are within normal limits. There is no evidence of a mass or adenopathy. There is no free fluid or free air. Bone window technique throughout the examination shows the osseous structures to be within normal limits. IMPRESSION: CT findings are within normal limits. <Electronically signed by Matheus Penaloza > 08/21/21 [id number]
== END ==
LOC: M RAD 14:22
PROVIDERS: ATTEND Specialist
DX: C50.919 Malignant neoplasm of unspecified site of unspecified female breast (principal)
CPT/HCPCS: 74160; Q9963; Q9967

== ENCOUNTER → 2021-10-20 | Outpatient (CLI) | payer OTHER ==
[~2021-10-20] MED LIST changes: -GASTROGRAFIN SOLUTION 30ML (Q9963) As Ordered ONE; -ISOVUE-370 76% 100ML VIAL As Ordered ONE; +ONDA-84 PO; -ONDA8TAB10 PO; -PROC10TA4 PO; +PROC10TA5 PO
== END ==
LOC: M CARPUL 08:21
PROVIDERS: ATTEND Specialist
DX: C50.911 Malignant neoplasm of unspecified site of right female breast (principal); Z79.899 Other long term (current) drug therapy

== ENCOUNTER → 2021-10-31 | Outpatient (CLI) | payer OTHER | LOC: M WHC 07:55 | PROVIDERS: ATTEND Surgery | DX: D05.11 Intraductal carcinoma in situ of right breast (principal); R92.1 Mammographic calcification found on diagnostic imaging of breast; N63.21 Unspecified lump in the left breast, upper outer quadrant | CPT/HCPCS: 76642; 77065; G0279 ==

== ENCOUNTER → 2021-11-12 | Outpatient (CLI) | payer OTHER, BC ==
[2021-11-12 09:43] VITALS: BP 116/82
== END ==
LOC: M WHCPRO 08:32
PROVIDERS: ATTEND Surgery
DX: N60.82 Other benign mammary dysplasias of left breast (principal); R92.0 Mammographic microcalcification found on diagnostic imaging of breast

== ENCOUNTER → 2021-12-26 | Outpatient (CLI) | payer OTHER, BC ==
[~2021-12-26] MED LIST changes: +GASTROGRAFIN SOLUTION 30ML (Q9963) As Ordered ONE; +ISOVUE-370 76% 100ML VIAL As Ordered ONE
== END ==
LOC: M RAD 12:00
PROVIDERS: ATTEND Specialist
DX: R94.5 Abnormal results of liver function studies (principal); C50.919 Malignant neoplasm of unspecified site of unspecified female breast
CPT/HCPCS: 74177; Q9963; Q9967

== ENCOUNTER → 2022-01-08 | Outpatient (CLI) | payer OTHER ==
[~2022-01-08] MED LIST changes: -GASTROGRAFIN SOLUTION 30ML (Q9963) As Ordered ONE; -ISOVUE-370 76% 100ML VIAL As Ordered ONE
== END ==
LOC: M WHC 11:56
PROVIDERS: ATTEND Nurse Practitioner Women's Health
DX: N63.24 Unspecified lump in the left breast, lower inner quadrant (principal); Z53.8 Procedure and treatment not carried out for other reasons

== ENCOUNTER → 2022-01-15 | Outpatient (CLI) | payer OTHER, BC | LOC: M WHC 14:59 | PROVIDERS: ATTEND Nurse Practitioner Women's Health | DX: N63.24 Unspecified lump in the left breast, lower inner quadrant (principal) ==

== ENCOUNTER → 2022-04-19 | Outpatient (CLI) | payer BC, OTHER ==
[~2022-04-19] MED LIST changes: +ALBU2.5V10 INH; -ALBU83IN INH; +CONC36TA4 PO; +ROSU40TA4 PO; +VITA100017 PO
== END ==
LOC: M LABSMTC 09:21
PROVIDERS: ATTEND Anesthesiology
DX: Z01.818 Encounter for other preprocedural examination (principal); Z11.52 Encounter for screening for COVID-19

== ENCOUNTER → 2022-07-02 | Outpatient (CLI) | payer OTHER | LOC: M WHC 08:58 | PROVIDERS: ATTEND Nurse Practitioner Women's Health | DX: N60.12 Diffuse cystic mastopathy of left breast (principal) | CPT/HCPCS: 77065; G0279 ==

== ENCOUNTER → 2022-12-01 | Outpatient (REF) | payer OTHER | LOC: M PLALAB 16:16 | PROVIDERS: ATTEND Advanced Practice Midwife | DX: Z12.4 Encounter for screening for malignant neoplasm of cervix (principal) ==

== ENCOUNTER 2023-04-07 17:56 | Inpatient (IN) | payer BC, OTHER ==
[~2023-04-07] VITALS: Ht 162.6 cm; Wt 74.5 kg
[2023-04-07 00:19] VITALS: BP 124/81; TEMP 98.1; O2SAT 95
[~2023-04-07 17:56] MED LIST changes: +EZET10TA21 PO; +JARD1TAB3 PO; +LETR2.5T2 PO; -ROSU20TA5 PO; +ROSU20TA61 PO
[2023-04-07 18:51] LABS: BASO # 0.1 10^3/uL (0.0-0.2); BASO % 0.8 % (0.0-1.0); EOS # 0.2 10^3/uL (0.0-0.5); EOS % 2.6 % (0.0-3.0); HEMATOCRIT 41.2 % (36.0-47.0); HEMOGLOBIN 13.4 g/dl (12.0-15.5); LYMPH # 2.5 10^3/uL (1.5-5.0); MEAN CORPUSCULAR HGB CONC 32.5 g/dl (32.0-36.5); MEAN CORPUSCULAR VOLUME 86.2 fl (80.0-96.0); MONO # 0.6 10^3/uL (0.0-0.8); MONO % 7.1 % (2.0-8.0); NEUTROPHILS # 4.4 10^3/uL (1.5-8.5); NEUTROPHILS % 56.6 % (36.0-66.0); PLATELET COUNT, AUTOMATED 282 10^3/uL (150-450); RED BLOOD COUNT 4.78 10^6/uL (4.00-5.40); WHITE BLOOD COUNT 7.7 10^3/uL (4.0-10.0)
[2023-04-07 19:07] LABS: BLOOD UREA NITROGEN 17 MG/DL (9-23); CALCIUM LEVEL 9.4 MG/DL (8.5-10.1); CARBON DIOXIDE LEVEL 27 MMOL/L (20-31); CHLORIDE LEVEL 105 MMOL/L (98-107); GLOMERULAR FILTRATION RATE > 60.0 (>51); GLUCOSE, FASTING 123 MG/DL (60-100); POTASSIUM SERUM 4.1 MMOL/L (3.5-5.1); SODIUM LEVEL 142 MMOL/L (136-145)
[2023-04-07 19:16] LABS: ERYTHROCYTE SEDIMENTATION RATE 68 mm/hr (0-30)
[2023-04-07] MEDS ORDERED: AMPICILLIN SOD/SULBACTAM SOD 3 GM in D5W MINI-BAG PLUS 100 ML IV ONE (21:30)
[2023-04-07] MEDS ORDERED: KETOROLAC 30 MG/ML 1ML VIAL IV PRN (22:10)
[2023-04-07] MEDS ORDERED: ACETAMINOPHEN TAB 650MG DOSE (2X325MG) PO PRN (22:10)
[2023-04-07] MEDS ORDERED: LR 1,000 ML IV SCH (22:10)
[2023-04-07] MEDS ORDERED: ALBUTEROL 90 MCG/ACT 8GM HFA INHALER INH PRN (22:10)
[2023-04-07] MEDS ORDERED: ONDANSETRON 4MG 2ML VIAL IV PRN (22:10)
[2023-04-07 23:11] LABS: RSV AMPLIFICATION NEGATIVE (NEGATIVE)
[2023-04-08] MEDS ORDERED: ROSU40TA4 PO (02:29)
[2023-04-08] MEDS ORDERED: EZET10TA21 PO (02:29)
[2023-04-08] MEDS ORDERED: CELE100C PO (02:29)
[2023-04-08] MEDS ORDERED: [UNRECOGNIZED DRUG - CODE] PO (02:29)
[2023-04-08] MEDS ORDERED: CONC36TA4 PO (02:29)
[2023-04-08] MEDS ORDERED: AMOX875T2 PO (02:29)
[2023-04-08] MEDS ORDERED: METF500T13 PO (02:29)
[2023-04-08] MEDS ORDERED: TRAM50TA2 PO (02:29)
[2023-04-08] MEDS ORDERED: HOME MED LIST COMPLETE! XX SCH (02:30)
[2023-04-08] MEDS ORDERED: DEXTROSE 50% 50ML SYRINGE IV PRN (03:10)
[2023-04-08] MEDS ORDERED: GLUCOSE 4GM CHEW TABLET PO PRN (03:10)
[2023-04-08] MEDS ORDERED: GLUCAGON INJ 1MG VIAL SC PRN (03:10)
[2023-04-08] MEDS: AMPICILLIN SOD/SULBACTAM SOD 3 GM in D5W MINI-BAG PLUS 100 ML IV SCH ×4 (04:17→21:17)
[2023-04-08] MEDS: HEPARIN SOD (PORCINE) 5000UNITS/ML 1ML VIAL/SYRINGE SC SCH ×3 (04:46→21:18)
[2023-04-08 05:56] LABS: BASO # 0.1 10^3/uL (0.0-0.2); BASO % 0.7 % (0.0-1.0); EOS # 0.2 10^3/uL (0.0-0.5); EOS % 2.6 % (0.0-3.0); HEMATOCRIT 37.8 % (36.0-47.0); HEMOGLOBIN 12.2 g/dl (12.0-15.5); LYMPH % 26.7 % (24.0-44.0); MEAN CORPUSCULAR HEMOGLOBIN 27.5 pg (27.0-33.0); MEAN CORPUSCULAR HGB CONC 32.3 g/dl (32.0-36.5); MEAN CORPUSCULAR VOLUME 85.3 fl (80.0-96.0); MONO # 0.6 10^3/uL (0.0-0.8); MONO % 7.6 % (2.0-8.0); NEUTROPHILS # 4.5 10^3/uL (1.5-8.5); NEUTROPHILS % 61.7 % (36.0-66.0); PLATELET COUNT, AUTOMATED 237 10^3/uL (150-450); RED BLOOD COUNT 4.43 10^6/uL (4.00-5.40); WHITE BLOOD COUNT 7.3 10^3/uL (4.0-10.0)
[2023-04-08 06:00] VITALS: BP 130/80; TEMP 97.9; O2SAT 97
[2023-04-08 06:21] LABS: ALBUMIN 3.4 G/DL (3.2-5.2); ALKALINE PHOSPHATASE 92 U/L (46-116); ALT/SGPT 22 U/L (7.0-40); AST/SGOT 15 U/L (<34); BILIRUBIN,TOTAL 0.4 MG/DL (0.3-1.2); BLOOD UREA NITROGEN 15 MG/DL (9-23); CALCIUM LEVEL 8.7 MG/DL (8.5-10.1); CARBON DIOXIDE LEVEL 28 MMOL/L (20-31); CHLORIDE LEVEL 107 MMOL/L (98-107); CREATININE FOR GFR 0.53 MG/DL (0.55-1.30); GLOMERULAR FILTRATION RATE > 60.0 (>51); GLUCOSE, FASTING 112 MG/DL (60-100); SODIUM LEVEL 142 MMOL/L (136-145)
[2023-04-08] MEDS: INSULIN LISPRO (NovoLOG) PER UNIT SC SCH ×3 (07:30→16:57)
[2023-04-08 14:00] VITALS: BP 103/68; TEMP 98.1; O2SAT 96
[2023-04-08 20:00] VITALS: BP 114/71; TEMP 97.9; O2SAT 93
[2023-04-08] MEDS ORDERED: busPIRone 5 MG TAB PO PRN (20:15)
[2023-04-08] MEDS ORDERED: INSULIN LISPRO (NovoLOG) PER UNIT SC SCH (21:00)
[2023-04-09] MEDS: AMPICILLIN SOD/SULBACTAM SOD 3 GM in D5W MINI-BAG PLUS 100 ML IV SCH ×2 (03:50→10:21)
[2023-04-09] MEDS: HEPARIN SOD (PORCINE) 5000UNITS/ML 1ML VIAL/SYRINGE SC SCH (05:38)
[2023-04-09 06:00] VITALS: BP 113/72; TEMP 97.5; O2SAT 93
[2023-04-09 06:13] LABS: BASO # 0.1 10^3/uL (0.0-0.2); BASO % 0.8 % (0.0-1.0); EOS # 0.2 10^3/uL (0.0-0.5); EOS % 2.9 % (0.0-3.0); HEMATOCRIT 39.8 % (36.0-47.0); HEMOGLOBIN 12.9 g/dl (12.0-15.5); LYMPH % 31.5 % (24.0-44.0); MEAN CORPUSCULAR HGB CONC 32.4 g/dl (32.0-36.5); MEAN CORPUSCULAR VOLUME 86.5 fl (80.0-96.0); MONO # 0.4 10^3/uL (0.0-0.8); MONO % 6.5 % (2.0-8.0); NEUTROPHILS # 3.6 10^3/uL (1.5-8.5); NEUTROPHILS % 57.5 % (36.0-66.0); PLATELET COUNT, AUTOMATED 232 10^3/uL (150-450); WHITE BLOOD COUNT 6.3 10^3/uL (4.0-10.0)
[2023-04-09 06:35] LABS: BLOOD UREA NITROGEN 18 MG/DL (9-23); CALCIUM LEVEL 8.6 MG/DL (8.5-10.1); CARBON DIOXIDE LEVEL 24 MMOL/L (20-31); CHLORIDE LEVEL 107 MMOL/L (98-107); CREATININE FOR GFR 0.57 MG/DL (0.55-1.30); GLOMERULAR FILTRATION RATE > 60.0 (>51); GLUCOSE, FASTING 113 MG/DL (60-100); POTASSIUM SERUM 4.1 MMOL/L (3.5-5.1); SODIUM LEVEL 142 MMOL/L (136-145)
[2023-04-09] MEDS: INSULIN LISPRO (NovoLOG) PER UNIT SC SCH (07:30)
[2023-04-09] MEDS ORDERED: OMEPRAZOLE 20MG CAP PO SCH (09:00)
[2023-04-09] MEDS ORDERED: LETROZOLE 2.5 MG TAB PO SCH (09:00)
[2023-04-09] MEDS ORDERED: DESVENLAFAXINE ER 50MG TABLET (PRISTIQ) PO SCH (09:00)
[2023-04-09] MEDS ORDERED: ROSUVASTATIN 10 MG TAB (CRESTOR) PO SCH (09:00)
[2023-04-09] MEDS ORDERED: EZETIMIBE 10MG TABLET (ZETIA) PO SCH (09:00)
== END 2023-04-09 11:20 | disposition home or self-care (01) | DRG 603 ==
LOC: M ED 17:56 → M ED INP 22:07 → ENRESERV 23:58 → M MSPAV 04-08 00:19
PROVIDERS: ADMIT Internal Medicine; ATTEND Internal Medicine Nephrology
DX: L03.115 Cellulitis of right lower limb (principal); E11.9 Type 2 diabetes mellitus without complications; L02.415 Cutaneous abscess of right lower limb; K21.9 Gastro-esophageal reflux disease without esophagitis; E78.5 Hyperlipidemia, unspecified; E78.00 Pure hypercholesterolemia, unspecified; F41.9 Anxiety disorder, unspecified; S91.359A Open bite, unspecified foot, initial encounter; J45.909 Unspecified asthma, uncomplicated; Z85.3 Personal history of malignant neoplasm of breast; Z90.11 Acquired absence of right breast and nipple; Z79.84 Long term (current) use of oral hypoglycemic drugs; Z79.2 Long term (current) use of antibiotics; Z79.899 Other long term (current) drug therapy; Z88.8 Allergy status to other drugs, medicaments and biological substances; Z91.040 Latex allergy status; Z92.21 Personal history of antineoplastic chemotherapy

== ENCOUNTER → 2023-06-08 | Outpatient (CLI) | payer OTHER ==
[~2023-06-08] MED LIST changes: +AMOX875T2 PO; +CELE0.09 PO; +CELE100C PO; -CELE1CAP9 PO; +[UNRECOGNIZED DRUG - CODE] PO
== END ==
LOC: M WHC 13:13
PROVIDERS: ATTEND Nurse Practitioner
DX: Z85.3 Personal history of malignant neoplasm of breast (principal); Z90.11 Acquired absence of right breast and nipple
CPT/HCPCS: 77065; G0279

== ENCOUNTER → 2023-08-16 | Outpatient (CLI) | payer BC, OTHER ==
[~2023-08-16] MED LIST changes: +CLAR10CA3 PO; +MAGN400C PO; +VITA100093 PO; +VITA500C19 PO
== END ==
LOC: M WHC 12:34
PROVIDERS: ATTEND Nurse Practitioner
DX: Z13.820 Encounter for screening for osteoporosis (principal); M85.88 Other specified disorders of bone density and structure, other site; Z85.3 Personal history of malignant neoplasm of breast

== ENCOUNTER 2023-10-21 10:03 | Observation (INO) | payer BC, OTHER ==
[2023-10-21] VITALS (7 sets, daily range): BP systolic 105–128; BP diastolic 57–70; TEMP 96.8–97.5; O2SAT 96–97
[~2023-10-21] VITALS: Ht 162.6 cm; Wt 73.9 kg
[~2023-10-21 10:03] MED LIST changes: +CALC500C16 PO
[2023-10-21] MEDS ORDERED: ROCURONIUM BROMIDE 50MG/5ML VIAL As Ordered ONE (10:32)
[2023-10-21] MEDS ORDERED: ONDANSETRON 4MG 2ML VIAL As Ordered ONE (10:32)
[2023-10-21] MEDS ORDERED: LIDOCAINE 2% 100MG/5ML SDV (FOR ANES.) As Ordered ONE (10:32)
[2023-10-21] MEDS ORDERED: fentaNYL 250 MCG/5 ML INJECTION As Ordered ONE (10:32)
[2023-10-21] MEDS ORDERED: propofoL 200 MG/20 ML VIAL As Ordered ONE (10:32)
[2023-10-21] MEDS ORDERED: dexmedeTOMIDine (4MCG/ML)200MCG/50ML BTL (PRECEDEX) As Ordered ONE (10:32)
[2023-10-21] MEDS ORDERED: METOCLOPRAMIDE INJ 10MG/2ML VIAL As Ordered ONE (10:33)
[2023-10-21] MEDS ORDERED: MIDAZOLAM INJ 2MG/2ML VIAL As Ordered ONE (10:33)
[2023-10-21] MEDS: SCOPOLAMINE 1MG TRANSDERMAL PATCH TOP ONE (11:22)
[2023-10-21] MEDS: LR 1,000 ML IV SCH ×2 (11:22→17:10)
[2023-10-21] MEDS: ceFAZolin SOD 2 GM in IV 1 EA IV ONE (14:02)
[2023-10-21] MEDS: HEPARIN SOD (PORCINE) 5000UNITS/ML 1ML VIAL/SYRINGE SQ ONE (14:15)
[2023-10-21] MEDS ORDERED: ACETAMINOPHEN 1000MG 100ML IV BAG As Ordered ONE (14:29)
[2023-10-21] MEDS ORDERED: SUGAMMADEX SODIUM 500 MG/5 ML VIAL (BRIDION) As Ordered ONE (14:29)
[2023-10-21] MEDS ORDERED: ePHEDrine SULFATE 25 MG/5 ML(5MG/ML) SYRINGE As Ordered ONE (14:36)
[2023-10-21] MEDS: GENTAMICIN SULF 80MG/2ML VIAL As Ordered ONE (14:43)
[2023-10-21] MEDS ORDERED: diphenhydrAMINE 50MG/ML VIAL As Ordered ONE (15:06)
[2023-10-21] MEDS ORDERED: HYDROmorphone HCL 2MG/ML 1ML VIAL As Ordered ONE (15:06)
[2023-10-21] MEDS ORDERED: fentaNYL 100 MCG/2 ML INJECTION IV PRN (16:50)
[2023-10-21] MEDS ORDERED: ONDANSETRON 4MG 2ML VIAL IV PRN (17:10)
[2023-10-21] MEDS ORDERED: PERCOCET 5MG/325MG TAB PO PRN (17:10)
[2023-10-21] MEDS ORDERED: traMADol 50 MG TAB PO PRN (17:10)
[2023-10-21] MEDS ORDERED: GLUCOSE 4GM CHEW TABLET PO PRN (17:10)
[2023-10-21] MEDS ORDERED: DEXTROSE 50% 50ML SYRINGE IV PRN (17:10)
[2023-10-21] MEDS ORDERED: busPIRone 5 MG TAB PO PRN (17:10)
[2023-10-21] MEDS ORDERED: ACETAMINOPHEN TAB 650MG DOSE (2X325MG) PO PRN (17:10)
[2023-10-21] MEDS ORDERED: GLUCAGON INJ 1MG VIAL SC PRN (17:10)
[2023-10-21] MEDS ORDERED: LACRILUBE (AKWA TEARS) OPHTH OINT 3.5GM As Ordered ONE (17:17)
[2023-10-21] MEDS ORDERED: PHENYLephrine 500MCG 5ML (100MCG/ML) SYRINGE As Ordered ONE (17:17)
[2023-10-21] MEDS: oxyCODONE 5MG TAB PO PRN (17:31)
[2023-10-21] MEDS: INSULIN LISPRO (NovoLOG) PER UNIT SC SCH (18:36)
[2023-10-21] MEDS: ceFAZolin SOD 1 GM in D5W MINI-BAG PLUS 50 ML IV SCH (23:27)
[2023-10-22 03:10] VITALS: BP 104/65; TEMP 97.2; O2SAT 97
[2023-10-22 07:44] VITALS: BP 110/58; TEMP 97.3; O2SAT 96
[2023-10-22] MEDS: metFORMIN (GLUCOPHAGE) 500MG TAB PO SCH (08:00)
[2023-10-22] MEDS: MAGNESIUM OXIDE 400MG TAB (MAG-OX) PO SCH (08:10)
[2023-10-22] MEDS: EZETIMIBE 10MG TABLET (ZETIA) PO SCH (08:10)
[2023-10-22] MEDS: ROSUVASTATIN 10 MG TAB (CRESTOR) PO SCH (08:10)
[2023-10-22] MEDS: VITAMIN D 1,000 INTERNATIONAL UNITS TABLET PO SCH (08:10)
[2023-10-22] MEDS: METHYLPHENIDATE ER 18MG TABLET (CONCERTA) PO SCH (09:00)
[2023-10-22] MEDS: LORATADINE 10 MG TAB PO SCH (09:00)
[2023-10-22] MEDS ORDERED: AUGM500T34 PO (11:01)
[2023-10-22] MEDS ORDERED: TRAM50TA2 PO (11:01)
[2023-10-22 11:45] VITALS: BP 108/59; TEMP 97.9; O2SAT 94
[2023-10-23] MEDS ORDERED: DESVENLAFAXINE ER 50MG TABLET (PRISTIQ) PO SCH (09:00)
== END 2023-10-22 13:15 | disposition home or self-care (01) ==
LOC: M SDC 10:03 → M ED INP 10:04 → M MS5PR 18:13
PROVIDERS: ADMIT Plastic Surgery Surgery of the Hand; ATTEND Plastic Surgery Surgery of the Hand
DX: N65.1 Disproportion of reconstructed breast (principal); Z85.3 Personal history of malignant neoplasm of breast; Z90.11 Acquired absence of right breast and nipple; E11.9 Type 2 diabetes mellitus without complications; G47.30 Sleep apnea, unspecified; Z91.040 Latex allergy status; Z88.8 Allergy status to other drugs, medicaments and biological substances; Z79.899 Other long term (current) drug therapy
CPT/HCPCS: 11970; 19316; 88300; 88302; 96374; 96376; C9290; G0378; J0131; J0665; J0690; J1100; J1170; J1580; J2250; J2371; J2405; J2765; J3010; L8600

== ENCOUNTER 2024-05-01 07:36 | Day surgery (SDC) | payer BC, OTHER ==
[~2024-05-01] VITALS: Ht 162.6 cm; Wt 74.3 kg
[~2024-05-01 07:36] MED LIST changes: +AUGM500T34 PO; -ROSU40TA4 PO; +ROSU40TA63 PO
[2024-05-01] MEDS: NS 1,000 ML IV ONE (07:57)
[2024-05-01] MEDS ORDERED: propofoL 200 MG/20 ML VIAL As Ordered ONE (08:01)
[2024-05-01 08:21] VITALS: TEMP 97.3
[2024-05-01 08:40] VITALS: BP 98/51; O2SAT 97
== END 2024-05-01 08:51 | disposition home or self-care (01) ==
LOC: M OPP 07:36
PROVIDERS: ATTEND Internal Medicine Gastroenterology
DX: Z12.11 Encounter for screening for malignant neoplasm of colon (principal); Z86.010 Personal history of colon polyps; D12.1 Benign neoplasm of appendix; K64.8 Other hemorrhoids; E11.9 Type 2 diabetes mellitus without complications; G47.33 Obstructive sleep apnea (adult) (pediatric); Z99.89 Dependence on other enabling machines and devices; Z79.02 Long term (current) use of antithrombotics/antiplatelets; Z79.1 Long term (current) use of non-steroidal anti-inflammatories (NSAID); Z79.811 Long term (current) use of aromatase inhibitors; Z79.84 Long term (current) use of oral hypoglycemic drugs; Z79.899 Other long term (current) drug therapy; Z88.8 Allergy status to other drugs, medicaments and biological substances; Z91.040 Latex allergy status

== ENCOUNTER → 2024-06-13 | Outpatient (CLI) | payer BC, OTHER ==
[~2024-06-13] MED LIST changes: -ROSU20TA61 PO; +ROSU20TA86 PO; -ROSU40TA63 PO; +ROSU40TA81 PO; -VITA500C19 PO; +VITA500C22 PO
== END ==
LOC: M WHC 09:50
PROVIDERS: ATTEND Specialist
DX: C50.919 Malignant neoplasm of unspecified site of unspecified female breast (principal); N64.9 Disorder of breast, unspecified
CPT/HCPCS: 77065; G0279

== ENCOUNTER → 2025-01-22 | Outpatient (CLI) | payer BC, OTHER ==
[~2025-01-22] MED LIST changes: +METH36TA13 PO; -METH36TA5 PO; +WELLTAB38 PO
== END ==
LOC: M WHC 11:27
PROVIDERS: ATTEND Physician Assistant
DX: N63.20 Unspecified lump in the left breast, unspecified quadrant (principal); Z85.3 Personal history of malignant neoplasm of breast
CPT/HCPCS: 76642; 77065; G0279